=== PATIENT | female | born 1990 | race American Indian/Alaskan Native ===

== ENCOUNTER 2016-09-13 04:07 | Inpatient (IN) | payer MEDICAID ==
[2016-09-13] MEDS ORDERED: LACTATED RINGERS 1,000 ML IV SCH ×2 (10:00→11:00)
[2016-09-13] MEDS ORDERED: POLYCILLIN/NS 2 GM/100 ML 100 ML IV ONE (10:00)
[2016-09-13] MEDS ORDERED: SUBLIMAZE IV PRN (10:03)
[2016-09-13] MEDS ORDERED: ZOFRAN IV PRN ×2 (10:03→21:13)
[2016-09-13] MEDS ORDERED: BRETHINE IVP PRN (10:03)
[2016-09-13] MEDS ORDERED: ePHEDrine SULFATE IV PRN ×2 (10:03→17:23)
[2016-09-13] MEDS ORDERED: BRETHINE SUB-Q PRN (10:03)
[2016-09-13] MEDS ORDERED: MINERAL OIL PO PRN (10:03)
--- NOTE | 2016-09-13 10:23 | History and Physical Report ---
History of Present Illness Date of examination: 09/13/16 (PT obs in OBT and cx changed 3 cm to 6 cm.) Date of admission: 09/13/16 09:42 Past History Past Medical History: asthma (No meds) Past Surgical History: no surgical history [employer]IS[employer] ARTIST History: abnormal PAP smear (ASCUS/HPV +), chlamydia (2012 (not this gestation)) Family/Genetic History: none Social history: smoking (Since age 16, stopped in January after pos pg test) - Obstetrical History Expected Date of Delivery: 09/28/16 Actual Gestation: 37 Week(s) 6 Day(s) : 5 Para: 1 Hx # Term Pregnancies: 1 Number of Pregnancies: 0 Spontaneous Abortions: 1 Induced : 2 Number of Living Children: 1 #1 Infant Gender: Female year: 17 Birthweight: 3.118 kg Method of Delivery: Vaginal Complications: none Medications and Allergies Allergies Allergy/AdvReac Type Severity Reaction Status Date / Time No Known Allergies Allergy Verified 09/13/16 07:39 Home Medications Medication Instructions Recorded Confirmed Last Taken Type Pnv with Ca,No.72/Iron/FA [Pnv 1 tab PO DAILY 09/13/16 09/13/16 Unknown History Plus Multivit Tab] Active Meds: Active Medications Ampicillin Sodium (Polycillin/Ns 2 Gm/100 Ml) 100 mls @ 100 mls/hr IV ONCE ONE Stop: 09/13/16 10:59 Last Admin: 09/13/16 10:12 Dose: 100 mls/hr Lactated Ringer's (Lactated Ringers) 1,000 mls @ 125 mls/hr IV DIRECT MATILDE Last Admin: 09/13/16 10:11 Dose: 125 mls/hr Review of Systems ROS unobtainable: due to endotracheal tube All systems: negative - Vital Signs Vital signs: Vital Signs Pulse Pulse Ox 95 H 98 09/13/16 04:31 09/13/16 04:31 Temp Pulse Resp BP Pulse Ox 98.2 F 90 118/68 97 09/13/16 05:20 09/13/16 10:16 09/13/16 08:56 09/13/16 10:16 - Physical Exam Breasts: Positive: normal Cardiovascular: Regular rate Lungs: Positive: Clear to auscultation Abdomen: Positive: normal appearance, soft, normal bowel sounds Genitourinary (Female): Positive: other (VE deferred secondary to recent exam by RN. Pt requesting epidural and will hold VE until she is comfortable with epidural in place.) Cervix: Positive: other. Negative: lesion, discharge Uterus: Positive: normal size, normal contour Extremities: Deep Tendon Reflex Grade: Normal +2 - Obstetrical FHR: category 1 Uterine Contraction Monitor Mode: External Cervical Dilatation: 6 Uterine Contraction Pattern: Regular Uterine Contraction Intensity: Strong/Firm Results All other labs normal. Assessment and Plan A. 25 y/o admitted for active labor at 37.6 wk EGA GBS + BOWI Desires epidural\ P Routine admission, labs, VS\ Abx for GBS Epidural CAROLYN Anticipate
[2016-09-13] MEDS ORDERED: PITOCin/NS 20 UNIT/1000ML DRIP 1,000 ML IV SCH (11:00)
--- NOTE | 2016-09-13 12:02 | Progress Note ---
Assessment and Plan A. Awaiting epidural with IVF bolus just now infusing Ctx stalled GBS pos -awaiting abx infusion P Pitocin augmentation orders given Epidural and abx CAROLYN Anticipate Subjective - Subjective Date of service: 09/13/16 Patient reports: other (Reports ctx have stopped. Boluls for epidural just now infusing) Objective - Vital Signs Vital Signs: Vital Signs - 12hr 09/13/16 09/13/16 09/13/16 04:31 04:36 04:41 Temperature Pulse Rate 95 H 84 97 H Blood Pressure O2 Sat by Pulse 98 98 98 Oximetry 09/13/16 09/13/16 09/13/16 04:46 04:51 04:56 Temperature Pulse Rate 97 H 97 H 90 Blood Pressure O2 Sat by Pulse 98 99 98 Oximetry 09/13/16 09/13/16 09/13/16 05:20 07:11 07:12 Temperature 98.2 F Pulse Rate 105 H 96 H Blood Pressure 111/72 O2 Sat by Pulse 97 Oximetry 09/13/16 09/13/16 09/13/16 07:16 08:56 09:56 Temperature Pulse Rate 99 H 86 104 H Blood Pressure 118/68 O2 Sat by Pulse 97 98 Oximetry 09/13/16 09/13/16 09/13/16 10:01 10:06 10:11 Temperature Pulse Rate 88 93 H 96 H Blood Pressure O2 Sat by Pulse 97 98 98 Oximetry 09/13/16 09/13/16 09/13/16 10:16 10:21 10:26 Temperature Pulse Rate 90 91 H 114 H Blood Pressure O2 Sat by Pulse 97 97 98 Oximetry 09/13/16 09/13/16 09/13/16 10:31 10:36 10:41 Temperature Pulse Rate 103 H 87 104 H Blood Pressure O2 Sat by Pulse 97 97 97 Oximetry 09/13/16 09/13/16 09/13/16 11:01 11:06 11:11 Temperature Pulse Rate 92 H 100 H 89 Blood Pressure O2 Sat by Pulse 98 98 97 Oximetry 09/13/16 09/13/16 09/13/16 11:16 11:17 11:21 Temperature Pulse Rate 81 88 87 Blood Pressure 119/66 O2 Sat by Pulse 98 98 Oximetry 09/13/16 09/13/16 09/13/16 11:26 11:31 11:33 Temperature Pulse Rate 97 H 85 86 Blood Pressure 117/66 O2 Sat by Pulse 97 97 Oximetry 09/13/16 09/13/16 09/13/16 11:36 11:41 11:46 Temperature Pulse Rate 92 H 89 86 Blood Pressure O2 Sat by Pulse 97 97 98 Oximetry 09/13/16 09/13/16 09/13/16 11:47 11:51 11:56 Temperature Pulse Rate 80 83 93 H Blood Pressure 113/56 O2 Sat by Pulse 97 98 Oximetry - Exam Breasts: deferred Cardiovascular: Regular rate Lungs: Normal air movement Abdomen: Present: normal appearance, other (VE deferred since pt reports not having ctx. ) Uterus: Present: normal Uterine Contraction Monitor Mode: External
[2016-09-13] MEDS ORDERED: ePHEDrine SULFATE ONE (13:26)
[2016-09-13] MEDS ORDERED: POLYCILLIN/NS 1 GM/50 ML 50 ML ONE (14:34)
--- NOTE | 2016-09-13 16:25 | Event Note ---
Date: 09/13/16 Call from MARIA D Alonso who states that pt is now waiting for labs to get epidural. I had stepped into the room moments before where RN was charting and she stated she was waiting for pt to get bolused. I reminded nurse then that order was given at time of admission this AM at 10:00 for epidural and she has been waiting all these hours. She had already been bolused earlier when I asked another RN to set up the bolus while Celeste was in a delivery. Nurse then went to lunch and pt has continued to await her epidural placement. Pt was initially comfortable since ctx had stalled and is now in significant pain with ctx. IV med offered while pt is waiting for labs and anesthesia. Pt status/FHR remain reassuring.
[2016-09-13] MEDS: PITOCin/NS 30 UNIT/500ML 500 ML IV SCH ×3 (16:30→20:23)
[2016-09-13 16:41] LABS: Hematocrit 35.4 % (30.3-42.9); Hemoglobin 11.8 gm/dl (10.1-14.3); Mean Corpuscular HGB Conc 33 % (30-34); Mean Corpuscular Hemoglobin 30 pg (28-32); Mean Corpuscular Volume 89 fl (79-97); Platelet Count 256 K/mm3 (140-440); Red Blood Count 3.98 M/mm3 (3.65-5.03); Red Cell Distribution Width 13.7 % (13.2-15.2); White Blood Count 15.6 K/mm3 (4.5-11.0)
[2016-09-13] MEDS ORDERED: NARCAN 2 MG/2 ML IV PRN (17:23)
--- NOTE | 2016-09-13 17:23 | Anesthesia Consultation ---
Anesthesia Consult and Med Hx Date of service: 09/13/16 - Airway Anesthetic Teeth Evaluation: Good ROM Head & Neck: Adequate Mental/Hyoid Distance: Adequate Mallampati Class: Class II Intubation Access Assessment: Probably Good - Pulmonary Exam CTA: Yes - Cardiac Exam Cardiac Exam: RRR - Pre-Operative Health Status ASA Pre-Surgery Classification: ASA2 Proposed Anesthetic Plan: Epidural, Spinal - Pulmonary Hx Asthma: Yes (no inhaler) COPD: No Hx Pneumonia: No - Cardiovascular System Hx Hypertension: No - Central Nervous System Hx Seizures: No Hx Psychiatric Problems: No - Endocrine Hx Renal Disease: No Hx End Stage Renal Disease: No Hx Hypothyroidism: No Hx Hyperthyroidism: No - Hematic Hx Anemia: No Hx Sickle Cell Disease: No - Other Systems Hx Alcohol Use: No - Additional Comments Anesthesia Medical History Comments: +
--- NOTE | 2016-09-13 17:47 | Progress Note ---
Assessment and Plan A SROM with exam: clear fluid Pt at last comfortable with epidural d/t nursing shortage Pitocin @ 4 mu/ min with irregular, mild ctx P Proceed with increasing pitocin for adequate ctx\ Anticipate Subjective - Subjective Date of service: 09/13/16 Patient reports: other (comfortable now with epidural) Objective - Vital Signs Vital Signs: Vital Signs - 12hr 09/13/16 09/13/16 09/13/16 07:11 07:12 07:16 Pulse Rate 105 H 96 H 99 H Respiratory Rate Blood Pressure 111/72 O2 Sat by Pulse 97 97 Oximetry 09/13/16 09/13/16 09/13/16 08:56 09:56 10:01 Pulse Rate 86 104 H 88 Respiratory Rate Blood Pressure 118/68 O2 Sat by Pulse 98 97 Oximetry 09/13/16 09/13/16 09/13/16 10:06 10:11 10:16 Pulse Rate 93 H 96 H 90 Respiratory Rate Blood Pressure O2 Sat by Pulse 98 98 97 Oximetry 09/13/16 09/13/16 09/13/16 10:21 10:26 10:31 Pulse Rate 91 H 114 H 103 H Respiratory Rate Blood Pressure O2 Sat by Pulse 97 98 97 Oximetry 09/13/16 09/13/16 09/13/16 10:36 10:41 11:01 Pulse Rate 87 104 H 92 H Respiratory Rate Blood Pressure O2 Sat by Pulse 97 97 98 Oximetry 09/13/16 09/13/16 09/13/16 11:06 11:11 11:16 Pulse Rate 100 H 89 81 Respiratory Rate Blood Pressure O2 Sat by Pulse 98 97 98 Oximetry 09/13/16 09/13/16 09/13/16 11:17 11:21 11:26 Pulse Rate 88 87 97 H Respiratory Rate Blood Pressure 119/66 O2 Sat by Pulse 98 97 Oximetry 09/13/16 09/13/16 09/13/16 11:31 11:33 11:36 Pulse Rate 85 86 92 H Respiratory Rate Blood Pressure 117/66 O2 Sat by Pulse 97 97 Oximetry 09/13/16 09/13/16 09/13/16 11:41 11:46 11:47 Pulse Rate 89 86 80 Respiratory Rate Blood Pressure 113/56 O2 Sat by Pulse 97 98 Oximetry 09/13/16 09/13/16 09/13/16 11:51 11:56 12:01 Pulse Rate 83 93 H 94 H Respiratory Rate Blood Pressure O2 Sat by Pulse 97 98 98 Oximetry 09/13/16 09/13/16 09/13/16 12:04 12:06 12:11 Pulse Rate 96 H 90 94 H Respiratory Rate Blood Pressure 119/72 O2 Sat by Pulse 98 98 Oximetry 09/13/16 09/13/16 09/13/16 12:32 12:47 13:03 Pulse Rate 92 H 100 H 88 Respiratory Rate Blood Pressure 112/73 115/70 127/60 O2 Sat by Pulse Oximetry 09/13/16 09/13/16 09/13/16 13:17 13:32 14:02 Pulse Rate 95 H 89 97 H Respiratory Rate Blood Pressure 121/59 117/57 119/66 O2 Sat by Pulse Oximetry 09/13/16 09/13/16 09/13/16 14:17 14:32 15:17 Pulse Rate 91 H 85 89 Respiratory Rate Blood Pressure 121/68 122/70 121/73 O2 Sat by Pulse Oximetry 09/13/16 09/13/16 09/13/16 15:32 15:38 15:47 Pulse Rate 95 H 96 H Respiratory 18 Rate Blood Pressure 129/74 132/77 O2 Sat by Pulse Oximetry 09/13/16 09/13/16 09/13/16 16:02 16:17 16:32 Pulse Rate 86 86 85 Respiratory Rate Blood Pressure 117/62 116/72 116/64 O2 Sat by Pulse Oximetry 09/13/16 09/13/16 09/13/16 16:53 16:58 17:03 Pulse Rate 92 H 100 H 96 H Respiratory Rate Blood Pressure 134/77 124/69 O2 Sat by Pulse 98 97 98 Oximetry 09/13/16 09/13/16 09/13/16 17:04 17:06 17:08 Pulse Rate 98 H 98 H 92 H Respiratory Rate Blood Pressure 115/57 121/65 122/69 O2 Sat by Pulse 98 Oximetry 09/13/16 09/13/16 09/13/16 17:10 17:12 17:13 Pulse Rate 83 83 88 Respiratory Rate Blood Pressure 135/68 122/63 O2 Sat by Pulse 99 Oximetry 09/13/16 09/13/16 09/13/16 17:14 17:16 17:18 Pulse Rate 90 99 H 94 H Respiratory Rate Blood Pressure 120/66 117/64 113/61 O2 Sat by Pulse 98 Oximetry 09/13/16 09/13/16 09/13/16 17:20 17:22 17:23 Pulse Rate 90 83 110 H Respiratory Rate Blood Pressure 123/63 112/63 O2 Sat by Pulse 97 Oximetry 09/13/16 09/13/16 09/13/16 17:24 17:26 17:28 Pulse Rate 103 H 102 H 103 H Respiratory Rate Blood Pressure 114/60 110/60 105/55 O2 Sat by Pulse 98 Oximetry 09/13/16 09/13/16 09/13/16 17:30 17:32 17:33 Pulse Rate 83 116 H 109 H Respiratory Rate Blood Pressure 111/60 111/55 O2 Sat by Pulse 98 Oximetry 09/13/16 09/13/16 09/13/16 17:34 17:36 17:37 Pulse Rate 121 H 101 H 107 H Respiratory Rate Blood Pressure 105/51 112/55 110/58 O2 Sat by Pulse Oximetry 09/13/16 09/13/16 09/13/16 17:38 17:40 17:42 Pulse Rate 119 H 116 H 88 Respiratory Rate Blood Pressure 113/55 103/52 119/57 O2 Sat by Pulse 98 Oximetry 09/13/16 17:43 Pulse Rate 116 H Respiratory Rate Blood Pressure O2 Sat by Pulse 97 Oximetry - Exam Cardiovascular: Regular rate Lungs: Normal air movement Abdomen: Present: normal appearance Vulva: both: normal Uterus: Present: normal FHR: auscultation normal Uterine Contraction Monitor Mode: External Cervical Dilatation: 7 Cervical Effacement Percentage: 90 station: -2 Uterine Contraction Pattern: Irregular Uterine Contraction Intensity: Mild - Labs Labs: Abnormal Labs 09/13/16 09:55 WBC 15.6 H Laboratory Results - last 24 hr 09/13/16 09/13/16 09:55 09:55 WBC 15.6 H RBC 3.98 Hgb 11.8 Hct 35.4 MCV 89 MCH 30 MCHC 33 RDW 13.7 Plt Count 256 Blood Type O POSITIVE Antibody Screen Negative
[2016-09-13] MEDS ORDERED: fentaNYL-BUPIV 2 MCG/ML-0.125% 100 ML EPIDURAL SCH (18:00)
--- NOTE | 2016-09-13 18:54 | Progress Note ---
Assessment and Plan A. Active labor after long stall and delay r/t nurse shortage No descent Pt/ status remain stable P IUPC placed RN requested to increase pitocin Q 15 min Continue to anticipate /MD consult for maternal/ indications Subjective - Subjective Date of service: 09/13/16 Patient reports: other (Remains comfortable with epidural. ) Objective - Vital Signs Vital Signs: Vital Signs - 12hr 09/13/16 09/13/16 09/13/16 07:11 07:12 07:16 Pulse Rate 105 H 96 H 99 H Respiratory Rate Blood Pressure 111/72 O2 Sat by Pulse 97 97 Oximetry 09/13/16 09/13/16 09/13/16 08:56 09:56 10:01 Pulse Rate 86 104 H 88 Respiratory Rate Blood Pressure 118/68 O2 Sat by Pulse 98 97 Oximetry 09/13/16 09/13/16 09/13/16 10:06 10:11 10:16 Pulse Rate 93 H 96 H 90 Respiratory Rate Blood Pressure O2 Sat by Pulse 98 98 97 Oximetry 09/13/16 09/13/16 09/13/16 10:21 10:26 10:31 Pulse Rate 91 H 114 H 103 H Respiratory Rate Blood Pressure O2 Sat by Pulse 97 98 97 Oximetry 09/13/16 09/13/16 09/13/16 10:36 10:41 11:01 Pulse Rate 87 104 H 92 H Respiratory Rate Blood Pressure O2 Sat by Pulse 97 97 98 Oximetry 09/13/16 09/13/16 09/13/16 11:06 11:11 11:16 Pulse Rate 100 H 89 81 Respiratory Rate Blood Pressure O2 Sat by Pulse 98 97 98 Oximetry 09/13/16 09/13/16 09/13/16 11:17 11:21 11:26 Pulse Rate 88 87 97 H Respiratory Rate Blood Pressure 119/66 O2 Sat by Pulse 98 97 Oximetry 09/13/16 09/13/16 09/13/16 11:31 11:33 11:36 Pulse Rate 85 86 92 H Respiratory Rate Blood Pressure 117/66 O2 Sat by Pulse 97 97 Oximetry 09/13/16 09/13/16 09/13/16 11:41 11:46 11:47 Pulse Rate 89 86 80 Respiratory Rate Blood Pressure 113/56 O2 Sat by Pulse 97 98 Oximetry 09/13/16 09/13/16 09/13/16 11:51 11:56 12:01 Pulse Rate 83 93 H 94 H Respiratory Rate Blood Pressure O2 Sat by Pulse 97 98 98 Oximetry 09/13/16 09/13/16 09/13/16 12:04 12:06 12:11 Pulse Rate 96 H 90 94 H Respiratory Rate Blood Pressure 119/72 O2 Sat by Pulse 98 98 Oximetry 09/13/16 09/13/16 09/13/16 12:32 12:47 13:03 Pulse Rate 92 H 100 H 88 Respiratory Rate Blood Pressure 112/73 115/70 127/60 O2 Sat by Pulse Oximetry 09/13/16 09/13/16 09/13/16 13:17 13:32 14:02 Pulse Rate 95 H 89 97 H Respiratory Rate Blood Pressure 121/59 117/57 119/66 O2 Sat by Pulse Oximetry 09/13/16 09/13/16 09/13/16 14:17 14:32 15:17 Pulse Rate 91 H 85 89 Respiratory Rate Blood Pressure 121/68 122/70 121/73 O2 Sat by Pulse Oximetry 09/13/16 09/13/16 09/13/16 15:32 15:38 15:47 Pulse Rate 95 H 96 H Respiratory 18 Rate Blood Pressure 129/74 132/77 O2 Sat by Pulse Oximetry 09/13/16 09/13/16 09/13/16 16:02 16:17 16:32 Pulse Rate 86 86 85 Respiratory Rate Blood Pressure 117/62 116/72 116/64 O2 Sat by Pulse Oximetry 09/13/16 09/13/16 09/13/16 16:53 16:58 17:03 Pulse Rate 92 H 100 H 96 H Respiratory Rate Blood Pressure 134/77 124/69 O2 Sat by Pulse 98 97 98 Oximetry 09/13/16 09/13/16 09/13/16 17:04 17:06 17:08 Pulse Rate 98 H 98 H 92 H Respiratory Rate Blood Pressure 115/57 121/65 122/69 O2 Sat by Pulse 98 Oximetry 09/13/16 09/13/16 09/13/16 17:10 17:12 17:13 Pulse Rate 83 83 88 Respiratory Rate Blood Pressure 135/68 122/63 O2 Sat by Pulse 99 Oximetry 09/13/16 09/13/16 09/13/16 17:14 17:16 17:18 Pulse Rate 90 99 H 94 H Respiratory Rate Blood Pressure 120/66 117/64 113/61 O2 Sat by Pulse 98 Oximetry 09/13/16 09/13/16 09/13/16 17:20 17:22 17:23 Pulse Rate 90 83 110 H Respiratory Rate Blood Pressure 123/63 112/63 O2 Sat by Pulse 97 Oximetry 09/13/16 09/13/16 09/13/16 17:24 17:26 17:28 Pulse Rate 103 H 102 H 103 H Respiratory Rate Blood Pressure 114/60 110/60 105/55 O2 Sat by Pulse 98 Oximetry 09/13/16 09/13/16 09/13/16 17:30 17:32 17:33 Pulse Rate 83 116 H 109 H Respiratory Rate Blood Pressure 111/60 111/55 O2 Sat by Pulse 98 Oximetry 09/13/16 09/13/16 09/13/16 17:34 17:36 17:37 Pulse Rate 121 H 101 H 107 H Respiratory Rate Blood Pressure 105/51 112/55 110/58 O2 Sat by Pulse Oximetry 09/13/16 09/13/16 09/13/16 17:38 17:40 17:42 Pulse Rate 119 H 116 H 88 Respiratory Rate Blood Pressure 113/55 103/52 119/57 O2 Sat by Pulse 98 Oximetry 09/13/16 09/13/16 09/13/16 17:43 17:44 17:46 Pulse Rate 116 H 112 H 81 Respiratory Rate Blood Pressure 102/55 120/57 O2 Sat by Pulse 97 Oximetry 09/13/16 09/13/16 09/13/16 17:48 17:50 17:52 Pulse Rate 101 H 84 105 H Respiratory Rate Blood Pressure 115/55 123/62 119/57 O2 Sat by Pulse 98 Oximetry 09/13/16 09/13/16 09/13/16 17:53 17:54 17:56 Pulse Rate 97 H 99 H 106 H Respiratory Rate Blood Pressure 115/55 112/57 O2 Sat by Pulse 96 Oximetry 09/13/16 09/13/16 09/13/16 17:58 18:00 18:02 Pulse Rate 89 89 90 Respiratory Rate Blood Pressure 119/58 121/59 121/61 O2 Sat by Pulse 98 Oximetry 09/13/16 09/13/16 09/13/16 18:03 18:04 18:06 Pulse Rate 85 85 95 H Respiratory Rate Blood Pressure 118/62 116/62 O2 Sat by Pulse 97 Oximetry 09/13/16 09/13/16 09/13/16 18:08 18:13 18:18 Pulse Rate 84 85 93 H Respiratory Rate Blood Pressure O2 Sat by Pulse 98 98 99 Oximetry 09/13/16 09/13/16 09/13/16 18:23 18:28 18:33 Pulse Rate 105 H 93 H 101 H Respiratory Rate Blood Pressure O2 Sat by Pulse 99 98 99 Oximetry 09/13/16 09/13/16 09/13/16 18:38 18:43 18:48 Pulse Rate 103 H 86 103 H Respiratory Rate Blood Pressure O2 Sat by Pulse 97 97 97 Oximetry - Exam Abdomen: Present: normal appearance Vulva: both: normal Uterus: Present: normal FHR: auscultation normal Uterine Contraction Monitor Mode: External Cervical Dilatation: 9.5 Cervical Effacement Percentage: 100 station: -2 Uterine Contraction Pattern: Irregular (Pitocin @ 8 mu/min. Cx stretchy and easy to move behind cx but little pressure/movement with ctx.) - Labs Labs: Abnormal Labs 09/13/16 09:55 WBC 15.6 H Laboratory Results - last 24 hr 09/13/16 09/13/16 09:55 09:55 WBC 15.6 H RBC 3.98 Hgb 11.8 Hct 35.4 MCV 89 MCH 30 MCHC 33 RDW 13.7 Plt Count 256 Blood Type O POSITIVE Antibody Screen Negative
[2016-09-13] MEDS ORDERED: POLYCILLIN 1,000 MG in NACL 0.9% 50 ML IV ONE (19:17)
[2016-09-13] MEDS ORDERED: POLYCILLIN/NS 1 GM/50 ML 50 ML IV ONE (20:00)
--- NOTE | 2016-09-13 21:12 | Procedure Note ---
OB Delivery Note - Delivery Date of Delivery: 09/13/16 (@ 20:37) Surgeon: STEPHANIE STEWART Estimated blood loss: 100cc - Vaginal Intrapartum events: prolonged active phase (Delay getting epidural, then ctx phased out while waiting for a nurse to initiate epidural and then pitocin) Delivery induction: none Delivery augmentation: pitocin Delivery monitor: external FHT Route of delivery: Delivery placenta: spontaneous Delivery cord: nuchal cord (Reduced after del of head (loose)) Episiotomy: none Delivery laceration: 1st degree (Tiny introital lac) Delivery repair: vicryl (3.0 on SH) Anesthesia: epidural - A at 1 minute: 9 at 5 minutes: 9 Gender: Female (Vigorous girl placed skin/skin while cord pulsed, then C& C. 6lb 8oz/2956gm. Plans )
[2016-09-13] MEDS ORDERED: PHENERGAN PO PRN (21:13)
[2016-09-13] MEDS ORDERED: TYLENOL PO PRN (21:13)
[2016-09-13] MEDS ORDERED: DERMOPLAST TP PRN (21:13)
[2016-09-13] MEDS ORDERED: TUCKS PAD TP PRN (21:13)
[2016-09-13] MEDS ORDERED: BENADRYL PO PRN (21:13)
[2016-09-13] MEDS ORDERED: PHENERGAN PR PRN (21:13)
[2016-09-13] MEDS ORDERED: LANSINOH TP PRN (21:13)
[2016-09-13] MEDS ORDERED: DULCOLAX PR PRN (21:13)
[2016-09-13] MEDS ORDERED: MILK OF MAGNESIA PO PRN (21:13)
[2016-09-13] MEDS ORDERED: SODIUM CHLORIDE FLUSH SYRINGE 10 ML IV PRN (22:00)
[2016-09-14] MEDS: MOTRIN PO SCH ×3 (02:25→23:59)
[2016-09-14 07:57] LABS: Hematocrit 31.1 % (30.3-42.9); Hemoglobin 10.3 gm/dl (10.1-14.3)
--- NOTE | 2016-09-14 09:41 | Progress Note ---
Assessment and Plan A:PPD #1 - stable GBS + P: Plan discharge in am Discharge instructions given Subjective - Subjective Date of service: 09/14/16 Principal diagnosis: Patient reports: appetite normal [place]: doing well Objective - Vital Signs Latest vital signs: Vital Signs Temp Pulse Pulse Resp BP BP Pulse Ox 09/14/16 04:00 98.2 F 75 18 119/59 09/14/16 02:25 18 09/13/16 23:15 98.6 F 98 H 16 122/57 09/13/16 22:25 88 131/67 09/13/16 22:10 83 122/70 09/13/16 21:55 98 H 118/67 09/13/16 21:40 103 H 108/60 09/13/16 21:25 93 H 114/64 09/13/16 21:10 112 H 117/68 09/13/16 20:33 93 H 100 09/13/16 20:31 71 71 L 09/13/16 20:28 89 98 09/13/16 20:23 87 97 09/13/16 20:22 93 H 136/70 09/13/16 20:18 101 H 96 09/13/16 20:13 94 H 97 09/13/16 20:08 91 H 98 09/13/16 20:03 90 96 09/13/16 19:58 100 H 98 09/13/16 19:53 102 H 98 09/13/16 19:48 96 H 98 09/13/16 19:43 89 98 09/13/16 19:38 95 H 98 09/13/16 19:36 102 H 117/61 09/13/16 19:33 98 H 98 09/13/16 19:28 97 H 98 09/13/16 19:23 105 H 98 09/13/16 19:18 88 97 09/13/16 19:13 103 H 97 09/13/16 19:08 87 98 09/13/16 19:03 90 97 09/13/16 18:58 95 H 98 09/13/16 18:56 90 116/64 09/13/16 18:53 98 H 98 09/13/16 18:48 103 H 97 09/13/16 18:43 86 97 09/13/16 18:38 103 H 97 09/13/16 18:33 101 H 99 09/13/16 18:28 93 H 98 09/13/16 18:23 105 H 99 09/13/16 18:18 93 H 99 09/13/16 18:13 85 98 09/13/16 18:08 84 98 09/13/16 18:06 95 H 116/62 09/13/16 18:04 85 118/62 09/13/16 18:03 85 97 09/13/16 18:02 90 121/61 09/13/16 18:00 89 18 121/59 09/13/16 17:58 89 119/58 98 09/13/16 17:56 106 H 112/57 09/13/16 17:54 99 H 115/55 09/13/16 17:53 97 H 96 09/13/16 17:52 105 H 119/57 09/13/16 17:50 84 123/62 09/13/16 17:48 101 H 115/55 98 09/13/16 17:46 81 120/57 09/13/16 17:44 112 H 102/55 09/13/16 17:43 116 H 97 09/13/16 17:42 88 119/57 09/13/16 17:40 116 H 103/52 09/13/16 17:38 119 H 113/55 98 09/13/16 17:37 107 H 110/58 09/13/16 17:36 101 H 112/55 09/13/16 17:34 121 H 105/51 09/13/16 17:33 109 H 98 09/13/16 17:32 116 H 111/55 09/13/16 17:30 83 111/60 09/13/16 17:28 103 H 105/55 98 09/13/16 17:26 102 H 110/60 09/13/16 17:24 103 H 114/60 09/13/16 17:23 110 H 97 09/13/16 17:22 83 112/63 09/13/16 17:20 90 123/63 09/13/16 17:18 94 H 113/61 98 09/13/16 17:16 99 H 117/64 09/13/16 17:14 90 120/66 09/13/16 17:13 88 99 09/13/16 17:12 83 122/63 09/13/16 17:10 83 135/68 09/13/16 17:08 92 H 122/69 98 09/13/16 17:06 98 H 121/65 09/13/16 17:04 98 H 115/57 09/13/16 17:03 96 H 124/69 98 09/13/16 16:58 100 H 97 09/13/16 16:53 92 H 134/77 98 09/13/16 16:32 85 116/64 09/13/16 16:17 86 116/72 09/13/16 16:02 86 117/62 09/13/16 15:47 96 H 132/77 09/13/16 15:38 18 09/13/16 15:32 95 H 129/74 09/13/16 15:17 89 121/73 09/13/16 14:32 85 122/70 09/13/16 14:17 91 H 121/68 09/13/16 14:02 97 H 119/66 09/13/16 13:32 89 117/57 09/13/16 13:17 95 H 121/59 09/13/16 13:03 88 127/60 09/13/16 12:47 100 H 115/70 09/13/16 12:32 92 H 112/73 09/13/16 12:11 94 H 98 09/13/16 12:06 90 98 09/13/16 12:04 96 H 119/72 09/13/16 12:01 94 H 98 09/13/16 11:56 93 H 98 09/13/16 11:51 83 97 09/13/16 11:47 80 113/56 09/13/16 11:46 86 98 09/13/16 11:41 89 97 09/13/16 11:36 92 H 97 09/13/16 11:33 86 117/66 09/13/16 11:31 85 97 09/13/16 11:26 97 H 97 09/13/16 11:21 87 98 09/13/16 11:17 88 119/66 09/13/16 11:16 81 98 09/13/16 11:11 89 97 09/13/16 11:06 100 H 98 09/13/16 11:01 92 H 98 09/13/16 10:41 104 H 97 09/13/16 10:36 87 97 09/13/16 10:31 103 H 97 09/13/16 10:26 114 H 98 09/13/16 10:21 91 H 97 09/13/16 10:16 90 97 09/13/16 10:11 96 H 98 09/13/16 10:06 93 H 98 09/13/16 10:01 88 97 09/13/16 09:56 104 H 98 Intake and Output 09/13/16 09/14/16 09/14/16 22:59 06:59 14:59 Intake Total 600 Output Total 1400 Balance -800 Intake: Intake, Free Water 600 Output: Urine 1400 Void 1400 Other: Total, Output Amount 400 Estimated Blood Loss 100 - Exam Breasts: Present: deferred Cardiovascular: Present: Regular rate Lungs: Present: Clear to auscultation Abdomen: Present: soft Vulva: both: normal Uterus: Present: fundal height below umbilicus Extremities: Present: normal Deep Tendon Reflex Grade: Normal +2 - Labs Labs: Abnormal lab results 09/13/16 Range/Units 09:55 WBC 15.6 H (4.5-11.0) K/mm3
--- NOTE | 2016-09-14 09:43 | Discharge Summary ---
Providers - Providers Date of Admission: 09/13/16 09:42 Date of discharge: 09/15/16 Attending physician: BHAVANA DUMAS MD Primary care physician: BHAVANA DUMAS MD Hospitalization Reason for admission: active labor Delivery: Laceration: 1st degree Other procedures: none complications: none Discharge diagnosis: IUP at term delivered [place] baby: female Condition at discharge: Good Disposition: DISCHARGED TO HOME OR SELFCARE Plan - Provider Discharge Summary Activity: routine, no sex for 6 weeks, no strenuous exercise Diet: routine Instructions: routine Additional instructions: [] Smoking cessation referral if applicable(refer to patient education folder for contact #) [] Refer to [facility] Booklet Call your doctor immediately for: * Fever > 100.5 * Heavy vaginal bleeding ( >1 pad per hour) * Severe persistent headache * Shortness of breath * Reddened, hot, painful area to leg or breast * Drainage or odor from incision. * Keep incision clean and dry at all times and follow doctor's instructions regarding bathing/showering - Follow up plan Follow up: [facility] [Provider Group] - 6 Weeks
[2016-09-14] MEDS: PRENATAL VITAMIN PO SCH (10:05)
[2016-09-14] MEDS: NORCO 5/325 PO PRN (10:05)
[2016-09-15] MEDS: NORCO 5/325 PO PRN
[2016-09-15] MEDS: PRENATAL VITAMIN PO SCH (10:21)
[2016-09-15] MEDS: MOTRIN PO SCH (12:22)
[2016-09-15 13:48] VITALS: BP 116/58
== END 2016-09-15 12:45 | disposition home or self-care (01) | DRG 775 ==
LOC: TRG 04:07 → LD 09:42 → OB 22:36
PROVIDERS: ADMIT Obstetrics & Gynecology; ATTEND Obstetrics & Gynecology
PROC: 10E0XZZ Delivery of Products of Conception, External Approach (ICD-10-PCS; principal; 2016-09-13)
PROC: 0HQ9XZZ Repair Perineum Skin, External Approach (ICD-10-PCS; 2016-09-13)
PROC: 3E0S3CZ (ICD-10-PCS; 2016-09-13)
PROC: 10H07YZ Insertion of Other Device into Products of Conception, Via Natural or Artificial Opening (ICD-10-PCS; 2016-09-13)
PROC: 00HU33Z Insertion of Infusion Device into Spinal Canal, Percutaneous Approach (ICD-10-PCS; 2016-09-13)
DX: O69.81X0 Labor and delivery complicated by cord around neck, without compression, not applicable or unspecified (principal); O99.824 Streptococcus B carrier state complicating childbirth; O70.0 First degree perineal laceration during delivery; J45.909 Unspecified asthma, uncomplicated; O99.52 Diseases of the respiratory system complicating childbirth; Z37.0 Single live birth; Z3A.37 37 weeks gestation of pregnancy
CPT/HCPCS: 36415; 59025; 85014; 85018; 85027; 86850; 86900; 86901; 99211; A6250; G0463; J0290; J2405; J2590; J3010; J7120

== ENCOUNTER 2019-09-22 11:24 | Outpatient (CLI) | payer MEDICAID, OTHER ==
[2019-09-22 11:56] VITALS: BP 118/61
[2019-09-22] MEDS ORDERED: LACTATED RINGERS 500 ML IV ONE (12:21)
[2019-09-22 12:48] LABS: Bilirubin,Urine NEG (Negative); Blood,Urine NEG (Negative); Color,Urine Yellow (Yellow); Mucus,Urine FEW /HPF; Protein,Urine <15 mg/dL mg/dL (Negative); Urobilinogen,Urine < 2.0 mg/dL (<2.0)
[2019-09-22 12:55] LABS: Amphetamine Screen,Urine PRESUMPTIVE NEGATIVE; Benzodiazepines Screen,Urine PRESUMPTIVE NEGATIVE; Cannabinoid Screen,Urine PRESUMPTIVE NEGATIVE; Cocaine Screen,Urine PRESUMPTIVE NEGATIVE; Methadone Screen,Urine PRESUMPTIVE NEGATIVE; Opiate Screen,Urine PRESUMPTIVE NEGATIVE
[2019-09-22] MEDS ORDERED: LACTATED RINGERS 1,000 ML IV SCH (13:00)
== END 2019-09-22 15:23 | disposition home or self-care (01) ==
LOC: TRG 11:24
PROVIDERS: ATTEND Obstetrics & Gynecology
DX: O23.43 Unspecified infection of urinary tract in pregnancy, third trimester (principal); O62.9 Abnormality of forces of labor, unspecified; O99.513 Diseases of the respiratory system complicating pregnancy, third trimester; J45.909 Unspecified asthma, uncomplicated; Z3A.32 32 weeks gestation of pregnancy
CPT/HCPCS: 80307; 81001; 96360; J7120

== ENCOUNTER 2019-11-11 03:46 | Outpatient (CLI) | payer MEDICAID ==
[2019-11-11 04:02] VITALS: BP 126/71
--- NOTE | 2019-11-11 05:38 | Ultrasound Report ---
US OB follow up INDICATION / CLINICAL INFORMATION: r/o SROM; position; EGA. COMPARISON: None available. FINDINGS: A single live fetus of approximately 38 weeks 4 days gestational age is seen in cephalic presentation . Placenta is anterior grade 3 and free of the os. GUERA is 1.7, heart rate 137 and estimated fet al birthweight 3501 g. BPD is 9.6 equaling 39 weeks 1 week gestational age Head circumference is 33.6 equaling 38 weeks 3 days gestational age Abdominal circumference is 34.4 equaling 38 weeks 2 days gestational age length is 7.5 equally 38 weeks 3 days gestational age IMPRESSION: Single live fetus of approximately 38 weeks 4 days gestational age in cephalic presentation. GUERA is 1 1.7, heart rate 137 and estimated birthweight 3501 g Signer Name: Collin Sherman MD FACR Signed: 11/11/2019 5:34 AM Workstation Name: [id number]
== END 2019-11-11 05:33 | disposition home or self-care (01) ==
LOC: TRG 03:46
PROVIDERS: ATTEND Obstetrics & Gynecology
DX: O47.1 False labor at or after 37 completed weeks of gestation (principal); Z3A.38 38 weeks gestation of pregnancy
CPT/HCPCS: 59025; 76816

== ENCOUNTER 2020-09-10 08:03 | Day surgery (SDC) | payer MEDICAID ==
--- NOTE | 2020-09-06 15:31 | History and Physical Report ---
History of Present Illness Date of examination: 09/06/20 Chief complaint: severe cervical dysplasia History of present illness: 29 yo c/b hx asthma presenting for management for severe cervical dysplasia (CRISTIANO III). Hx cervical dysplasia on pap since atleast 2013. Patient understands indication of proceed and wishes to proceed. Past History Past Medical History: asthma Past Surgical History: D&C (x1) [employer] History: abnormal PAP smear, chlamydia Family/Genetic History: none Social history: no significant social history - Obstetrical History : 5 Para: 3 Induced : 2 Number of Living Children: 3 Medications and Allergies Allergies Allergy/AdvReac Type Severity Reaction Status Date / Time No Known Allergies Allergy Verified 09/04/20 15:06 Home Medications Medication Instructions Recorded Confirmed Last Taken Type No Known Home Medications [No 09/04/20 09/04/20 Unknown History Reported Home Medications] Review of Systems All systems: negative (expect HPI) - Physical Exam Cardiovascular: Regular rate Lungs: Positive: Clear to auscultation, Normal air movement Abdomen: Positive: normal appearance, normal bowel sounds Results All other labs normal. Assessment and Plan - Patient Problems (1) Severe dysplasia of cervix Status: Acute Plan to address problem: To OR for LEEP for CRISTIANO III --Questions solicited and answered --Consented in the chart
[~2020-09-10 08:03] MED LIST: LACTATED RINGERS 1,000 ML IV SCH; MIDAZOLAM 2 MG/2 ML INJ IV NR
--- NOTE | 2020-09-10 08:58 | Anesthesia Consultation ---
Anesthesia Consult and Med Hx Date of service: 09/10/20 - Airway Anesthetic Teeth Evaluation: Good ROM Head & Neck: Adequate Mental/Hyoid Distance: Adequate Mallampati Class: Class II Intubation Access Assessment: Probably Good - Pulmonary Exam CTA: Yes - Cardiac Exam Cardiac Exam: RRR - Pre-Operative Health Status ASA Pre-Surgery Classification: ASA2 Proposed Anesthetic Plan: General - Pulmonary Hx Smoking: Yes (former smoker quit 4 yrs ago) Hx Asthma: Yes (no symptoms in many years) Hx Respiratory Symptoms: No - Cardiovascular System Hx Hypertension: No - Central Nervous System CVA: No - Endocrine Hx Renal Disease: No Hx Liver Disease: No Hx Insulin Dependent Diabetes: No Hx Non-Insulin Dependent Diabetes: No Hx Thyroid Disease: No - Other Systems Hx Obesity: No - Additional Comments Anesthesia Medical History Comments: No hx anesthetic complications.
--- NOTE | 2020-09-10 08:58 | Anesthesia Day of Surgery ---
Anesthesia Day of Surgery - Day of Surgery Patient Examined: Yes Patient H&P Reviewed: Yes Patient is NPO: Yes
[2020-09-10] MEDS ORDERED: FERRIC SUBSULFATE TOPICAL SOLN 8 ML TP ONE ×2 (09:30→11:17)
[2020-09-10] MEDS ORDERED: POTASSIUM IODIDE/IODINE (LUGOLS) 30 ML TP ONE ×2 (09:30→11:16)
[2020-09-10] MEDS ORDERED: HYDROmorphone 1 MG/1 ML INJ IV PRN (09:30)
[2020-09-10] MEDS ORDERED: ONDANSETRON 4 MG/2 ML INJ IV PRN (09:30)
[2020-09-10 09:35] LABS: Basophils % (Auto) 0.6 % (0.0-1.8); Eosinophils # (Auto) 0.1 K/mm3 (0.0-0.4); Eosinophils % (Auto) 0.7 % (0.0-4.3); Hematocrit 38.2 % (30.3-42.9); Hemoglobin 13.3 gm/dl (10.1-14.3); Lymphocytes # (Auto) 1.7 K/mm3 (1.2-5.4); Lymphocytes % (Auto) 24.9 % (13.4-35.0); Mean Corpuscular HGB Conc 35 % (30-34); Mean Corpuscular Volume 93 fl (79-97); Monocytes # (Auto) 0.6 K/mm3 (0.0-0.8); Monocytes % (Auto) 8.5 % (0.0-7.3); Platelet Count 287 K/mm3 (140-440); Red Blood Count 4.13 M/mm3 (3.65-5.03); Red Cell Distribution Width 12.5 % (13.2-15.2)
[2020-09-10] MEDS ORDERED: propofoL 200 MG/20 ML VIAL IV ONE (10:11)
[2020-09-10] MEDS ORDERED: dexAMETHasone 20 MG/5 ML VIAL ONE ×2 (10:18→10:58)
[2020-09-10] MEDS ORDERED: KETOROLAC 30 MG/1 ML INJ ONE (10:18)
[2020-09-10] MEDS ORDERED: ONDANSETRON 4 MG/2 ML INJ ONE (10:18)
--- NOTE | 2020-09-10 11:03 | Procedure Note ---
Date of procedure: 09/10/20 Pre-op diagnosis: severe cervical dysplasia (CRISTIANO III) Post-op diagnosis: same Procedure: Preoperative diagnosis: Biopsy-proven cervical intraepithelial neoplasia (CRISTIANO) 3 Postop postoperative diagnosis: Same Operation performed: 1. Exam under anesthesia 2. Loop electrosurgical excision procedure 3. Tophat excision Surgeon: Zuri Amaya MD Estimated blood loss 10cc Intraoperative IV fluids 550cc Urine output 25cc Pathology specimens: 1. Loop left surgical excision procedure (LEEP) biopsy 2. LEEP Top-Hat Complications: none Disposition and condition: To the PACU in stable condition then discharged home Findings: 1. Small anteverted mobile uterus without any adnexal masses on EUA 2. Grossly normal-appearing cervix Statement medical necessity: This is a 29-year-old G 5 P 3023 patient, with a history of high grade pap smear followed by suspected satisfactory colposcopy and biopsy proven CRISTIANO III. The procedural risk, benefits, indications and alternatives were thoroughly reviewed patient and she desired to proceed with surgical management. Description of operation: After obtaining informed consent the patient was taken to the operating room where satisfactory general endotracheal anesthesia was established. The patient was placed in the standard lithotomy position using Pierre stirrups, ensuring proper positioning and cushioning to avoid injury. Exam under anesthesia was performed with the findings noted above. Straight c atheterization of the bladder was performed. Patient was prepped and draped in the usual sterile fashion. Coated sidewall retractors were inserted into the anterior and posterior vaginal fornix to assist with visualization of the cervix. The cervix and upper vagina were coated with the Lugol's iodine and inspected for nonstaining areas. The entire transformation zone was visualized and there was a small circumferential nonstaining area around the cervical os. A LEEP was completed with a 20 x 12 mm loop electrode in an anterior lip and posterior lip pass, each marked at 12 oclock. A LEEP Top-Hat was performed with a 10x10 mm loop electrode marked at 12 oclock. All specimens were sent to pathology. The biopsy site was rendered hemostatic with Bovie electrocautery with a 3 mm electrosurgical ball electrode and Monsel's solution was applied to the excisional base. The retractors were removed. The patient was returned to dorsal supine position. The patient tolerated procedure well, was extubated without difficulty and transferred to recovery in good condition. Sponge, needle and instrument counts are correct x2. There is no surgical or anesthetic complications. Anesthesia: GETA Surgeon: ZURI AMAYA JR Estimated blood loss: minimal IV fluids: 550 Urine output: 25 Pathology: list (1. anterior cervix, 2. posterior cervix, 3. Top Hat) Specimen disposition: to lab Condition: stable Disposition: same day
[2020-09-10] MEDS ORDERED: SODIUM CHLORIDE 0.9% IRR 1,500 ML BOTTLE IR ONE (11:17)
[2020-09-10] MEDS ORDERED: oxyCODONE /ACETAMINOPHEN 5-325MG TAB PO PRN (11:30)
[2020-09-10] MEDS ORDERED: IBUPROFEN 600 MG TAB PO PRN (11:30)
[2020-09-10 12:28] VITALS: BP 129/77
--- NOTE | 2020-09-10 12:46 | Post Anesthesia Evaluation ---
- Post Anesthesia Evaluation Patient Participated: Yes Airway Patent: Yes Stable Respiratory Function: Yes Nausea/Vomiting: No Temp > 96.8F: Yes Pain Manageable: Yes Adequeate Hydration: Yes Anesthesia Complications: No
== END 2020-09-10 12:30 | disposition home or self-care (01) ==
LOC: OR 08:03
PROVIDERS: ATTEND Obstetrics & Gynecology
DX: D06.9 Carcinoma in situ of cervix, unspecified (principal); J45.909 Unspecified asthma, uncomplicated; Z79.899 Other long term (current) drug therapy; Z87.891 Personal history of nicotine dependence; Z72.89 Other problems related to lifestyle; Z98.890 Other specified postprocedural states
CPT/HCPCS: 36415; 57522; 81025; 85025; 86850; 86900; 86901; 88305; 88307; J1100; J1885; J2250; J2405; J2704; J7120